=== PATIENT | male | born 1985 | race Two or more races ===

== ENCOUNTER 2024-01-31 13:43 | Inpatient (IN) | payer OTHER ==
[~2024-01-31] VITALS: Ht 160 cm; Wt 90.0 kg
[2024-01-31 14:28] LABS: BASOPHILS % (AUTO) 0.9 % (0.0-2.0); EOSINOPHILS % (AUTO) 4.3 % (1.0-6.0); HEMATOCRIT 36.1 % (41-53); HEMOGLOBIN 11.9 g/dL (13.5-17.5); LYMPHOCYTES # (AUTO) 1.6 K/uL (1.0-4.8); LYMPHOCYTES % (AUTO) 21.3 % (22.0-44.0); MEAN CORPUSCULAR HEMOGLOBIN 32.7 pg (26.0-34.0); MEAN CORPUSCULAR HGB CONC 33.1 G/dL (31.0-37.0); MEAN CORPUSCULAR VOLUME 99 fL (80-100); MONOCYTES # (AUTO) 0.6 K/uL (0.1-1.0); MONOCYTES % (AUTO) 8.3 % (2.0-9.0); NEUTROPHILS # (AUTO) 4.8 K/uL (1.8-7.7); NEUTROPHILS % (AUTO) 65.2 % (40.0-70.0); PLATELET COUNT (AUTO) 201 K/uL (150-450); RED BLOOD CELL COUNT(AUTO) 3.66 MIL/uL (4.50-5.90); RED CELL DISTRIBUTION WIDTH 13.7 % (11.5-14.5); WHITE BLOOD COUNT (AUTO) 7.3 K/uL (4.5-11.0)
[2024-01-31 14:35] LABS: CALCIUM, TOTAL 8.1 mg/dL (8.8-10.5); CREATININE 8.06 mg/dL (0.60-1.30); POTASSIUM 4.5 mmol/L (3.5-5.1)
[2024-01-31 14:44] LABS: TROPONIN I-HIGH SENSITIVITY 6 ng/L (<76)
[2024-01-31] MEDS ORDERED: PANT-31 PO (15:58)
[2024-01-31] MEDS ORDERED: AMLO-258 PO (15:58)
[2024-01-31] MEDS ORDERED: ATOR40TA28 PO (15:58)
[2024-01-31] MEDS ORDERED: CALC-613 PO (15:58)
[2024-01-31] MEDS ORDERED: FURO20 PO (15:58)
[2024-01-31] MEDS ORDERED: ASPI-1450 PO (15:58)
[2024-01-31] MEDS ORDERED: DOCU-385 PO (15:58)
[2024-01-31] MEDS ORDERED: CHOL200059 PO (15:58)
[2024-01-31] MEDS ORDERED: LOSA-382 PO (15:58)
[2024-01-31] MEDS ORDERED: INSU100V45 SQ (15:58)
[2024-01-31] MEDS ORDERED: CARV12 PO (15:58)
[2024-01-31] MEDS ORDERED: SITA25 PO (15:58)
[2024-01-31] MEDS ORDERED: PHOSLOC PO (15:58)
[2024-01-31] MEDS: AmLODIPine BESYLATE 10 MG TABLET PO SCH (16:15)
[2024-01-31] MEDS ORDERED: ONDANSETRON HCL 4 MG/2 ML VIAL IVP PRN (16:15)
[2024-01-31] MEDS ORDERED: ACETAMINOPHEN 325 MG TABLET PO PRN (16:15)
[2024-01-31] MEDS ORDERED: INSULIN LISPRO 100 UNITS/ML SQ PRN (16:15)
[2024-01-31] MEDS ORDERED: DEXTROSE 50%-WATER 25 GM/50 ML SYRINGE IVP PRN (16:15)
[2024-01-31] MEDS: HydrALAZINE HCL 25 MG TABLET PO ONE (22:01)
[2024-01-31 23:00] VITALS: BP 167/88; PULSE 69; RESP 18; TEMP 97.2
[2024-01-31 23:10] VITALS: BP 173/94; PULSE 68; RESP 18
[2024-01-31 23:40] VITALS: BP 141/87; PULSE 69; RESP 18
[2024-02-01] VITALS (7 sets, daily range): BP systolic 99–134; BP diastolic 66–87; PULSE 65–73; RESP 18; TEMP 98.3–98.4
[2024-02-01 08:01] LABS: GLUCOMETER DEV NAME(LOC) 4E.2; GLUCOSE,POINT OF CARE 152 MG/DL (70-110)
[2024-02-01] MEDS: FAMOTIDINE 20 MG TABLET PO SCH (08:22)
[2024-02-01] MEDS ORDERED: ACET-2247 PO (09:11)
== END 2024-02-01 13:21 | DRG 682 ==
LOC: EMS 13:43 → EDH 16:36 → 6S 02-01 02:39
PROVIDERS: ADMIT Internal Medicine; ATTEND Internal Medicine
PROC: 5A1D70Z Performance of Urinary Filtration, Intermittent, Less than 6 Hours Per Day (ICD-10-PCS; principal; 2024-01-31)
DX: I12.0 Hypertensive chronic kidney disease with stage 5 chronic kidney disease or end stage renal disease (principal); N18.6 End stage renal disease; E11.22 Type 2 diabetes mellitus with diabetic chronic kidney disease; Z99.2 Dependence on renal dialysis; D63.1 Anemia in chronic kidney disease; E66.9 Obesity, unspecified; Z83.3 Family history of diabetes mellitus; K21.9 Gastro-esophageal reflux disease without esophagitis; Z79.4 Long term (current) use of insulin; Z68.35 Body mass index [BMI] 35.0-35.9, adult
CPT/HCPCS: 80048; 82962; 84484; 85025; 87081; 87340; 90935; 93005; 99285; G0378

== ENCOUNTER 2024-02-02 08:55 | Inpatient (IN) | payer OTHER ==
[~2024-02-02] VITALS: Ht 154.9 cm; Wt 97.0 kg
[2024-02-02] VITALS (12 sets, daily range): BP systolic 99–158; BP diastolic 63–83; PULSE 66–81; RESP 17–18; TEMP 96.8–98.2
[~2024-02-02 08:55] MED LIST: ACET-2247 PO; AMLO-258 PO; ASPI-1450 PO; ATOR40TA28 PO; CALC-613 PO; CARV12 PO; CHOL200059 PO; DOCU-385 PO; INSU100V45 SQ; PANT-31 PO; PHOSLOC PO; SITA25 PO
[2024-02-02 09:31] LABS: BASOPHILS % (AUTO) 1.3 % (0.0-2.0); EOSINOPHILS % (AUTO) 3.3 % (1.0-6.0); HEMATOCRIT 37.6 % (41-53); HEMOGLOBIN 12.7 g/dL (13.5-17.5); LYMPHOCYTES # (AUTO) 1.4 K/uL (1.0-4.8); LYMPHOCYTES % (AUTO) 21.9 % (22.0-44.0); MEAN CORPUSCULAR HGB CONC 33.6 G/dL (31.0-37.0); MEAN CORPUSCULAR VOLUME 98 fL (80-100); MONOCYTES # (AUTO) 0.7 K/uL (0.1-1.0); MONOCYTES % (AUTO) 10.3 % (2.0-9.0); NEUTROPHILS # (AUTO) 4.1 K/uL (1.8-7.7); NEUTROPHILS % (AUTO) 63.2 % (40.0-70.0); PLATELET COUNT (AUTO) 203 K/uL (150-450); RED BLOOD CELL COUNT(AUTO) 3.84 MIL/uL (4.50-5.90); RED CELL DISTRIBUTION WIDTH 13.7 % (11.5-14.5); WHITE BLOOD COUNT (AUTO) 6.5 K/uL (4.5-11.0)
[2024-02-02 09:44] LABS: CALCIUM, TOTAL 8.8 mg/dL (8.8-10.5); CREATININE 7.82 mg/dL (0.60-1.30); POTASSIUM 4.8 mmol/L (3.5-5.1)
[2024-02-02] MEDS ORDERED: ONDANSETRON HCL 4 MG/2 ML VIAL IVP PRN (10:30)
[2024-02-02] MEDS ORDERED: MAGNESIUM HYDROXIDE SUSPENSION 30 ML UDCUP PO PRN (10:30)
[2024-02-02] MEDS ORDERED: ZOLPIDEM TARTRATE 5 MG TABLET PO PRN (10:30)
[2024-02-02] MEDS ORDERED: IPRATROPIUM BROMIDE 0.5 MG/2.5 ML NEB SOLUTION NEB PRN (10:30)
[2024-02-02] MEDS ORDERED: ALBUTEROL SULFATE 2.5 MG/0.5 ML NEB SOLUTION NEB PRN (10:30)
[2024-02-02] MEDS ORDERED: BISACODYL 10 MG RECTAL RECTAL SUPPOSITORY PR PRN (10:30)
[2024-02-02] MEDS ORDERED: ACETAMINOPHEN 325 MG TABLET PO PRN (10:30)
[2024-02-03] MEDS ORDERED: PANTOPRAZOLE SODIUM 40 MG DR TABLET PO SCH (09:00)
== END 2024-02-02 17:26 | DRG 682 ==
LOC: EMS 08:55 → EDH 11:06
PROVIDERS: ADMIT Hospitalist; ATTEND Hospitalist
PROC: 5A1D70Z Performance of Urinary Filtration, Intermittent, Less than 6 Hours Per Day (ICD-10-PCS; principal; 2024-02-02)
DX: I12.0 Hypertensive chronic kidney disease with stage 5 chronic kidney disease or end stage renal disease (principal); N18.6 End stage renal disease; E78.00 Pure hypercholesterolemia, unspecified; E78.5 Hyperlipidemia, unspecified; E11.22 Type 2 diabetes mellitus with diabetic chronic kidney disease; D63.1 Anemia in chronic kidney disease; K21.9 Gastro-esophageal reflux disease without esophagitis; Z83.3 Family history of diabetes mellitus; Z99.2 Dependence on renal dialysis
CPT/HCPCS: 80048; 85025; 90935; 99285; G0378